=== PATIENT | female | born 1940 | race Caucasian/White ===

== ENCOUNTER → 2016-07-14 | Outpatient (CLI) | payer MEDICARE, BC ==
[~2016-07-14] MED LIST: ALPHA LIPOIC A PO; ALPHA LIPOIC ACID PO; BENICAR20 MG PO; CIPRO 500MG TA500 MG PO; CO Q-1030 MG PO; CO Q1030 MG PO; METRONIDAZOLE500 MG PO; MULTIPLE VITAMI1 CAP PO; NORCO 325 MG-51 TAB PO; OMEGA 31000 MG PO; VITAMIN B COMPL1 TA1 PO; VITAMIN C BUFF500 MG PO; VITAMIN D31000 IU PO
== END ==
LOC: MC.RAD 10:00
DX: Z12.31 Encounter for screening mammogram for malignant neoplasm of breast (principal); N64.89 Other specified disorders of breast

== ENCOUNTER → 2016-07-15 | Outpatient (CLI) | payer MEDICARE, BC ==
[~2016-07-15] VITALS: Ht 163.8 cm; Wt 104.1 kg
== END ==
LOC: LIGHT 07-08 10:59
DX: E88.81 Metabolic syndrome and other insulin resistance (principal); E11.9 Type 2 diabetes mellitus without complications; E66.09 Other obesity due to excess calories; Z68.39 Body mass index [BMI] 39.0-39.9, adult; E78.4 Other hyperlipidemia

== ENCOUNTER → 2016-09-07 | Outpatient (CLI) | payer MEDICARE, BC | LOC: BHSO 13:10 | DX: F33.0 Major depressive disorder, recurrent, mild (principal) ==

== ENCOUNTER → 2016-09-09 | Outpatient (CLI) | payer MEDICARE, BC ==
[~2016-09-09] VITALS: Ht 163.8 cm; Wt 103.4 kg
== END ==
LOC: LIGHT 10:35
DX: E88.81 Metabolic syndrome and other insulin resistance (principal); E11.9 Type 2 diabetes mellitus without complications; E66.8 Other obesity; Z68.39 Body mass index [BMI] 39.0-39.9, adult; E78.4 Other hyperlipidemia; Z90.710 Acquired absence of both cervix and uterus

== ENCOUNTER → 2016-10-12 | Outpatient (CLI) | payer MEDICARE, BC | LOC: BHSO 13:05 | DX: F33.1 Major depressive disorder, recurrent, moderate (principal) ==

== ENCOUNTER → 2016-10-21 | Outpatient (CLI) | payer MEDICARE, BC ==
[~2016-10-21] VITALS: Ht 163.8 cm; Wt 102.3 kg
[2016-10-21 11:13] VITALS: BP 136/68; PULSE 72
== END ==
LOC: LIGHT 11:05
DX: E88.81 Metabolic syndrome and other insulin resistance (principal); E11.9 Type 2 diabetes mellitus without complications; E66.9 Obesity, unspecified; Z68.38 Body mass index [BMI] 38.0-38.9, adult; Z71.3 Dietary counseling and surveillance; E78.5 Hyperlipidemia, unspecified

== ENCOUNTER → 2016-11-19 | Outpatient (CLI) | payer MEDICARE, BC | LOC: BHSO 13:58 | DX: F33.1 Major depressive disorder, recurrent, moderate (principal) ==

== ENCOUNTER 2016-12-08 10:10 | Outpatient (RCR) | payer MEDICARE, BC | END 2016-12-09 08:41 | LOC: MKS.ESL.PT 10:10 | DX: M76.31 Iliotibial band syndrome, right leg (principal); M79.651 Pain in right thigh ==

== ENCOUNTER 2016-12-08 10:15 | Outpatient (RCR) | payer MEDICARE, BC | END 2016-12-09 08:41 | disposition still patient (30) | LOC: MKS.ESL.PT 10:15 | DX: M25.551 Pain in right hip (principal); M54.5 Low back pain; M79.651 Pain in right thigh; M79.641 Pain in right hand | CPT/HCPCS: G8978-GP; G8979-GP; G8980-GP ==

== ENCOUNTER → 2016-12-16 | Outpatient (CLI) | payer MEDICARE, BC ==
[~2016-12-16] VITALS: Ht 163.8 cm; Wt 99.3 kg
[2016-12-16 11:28] VITALS: BP 134/70; PULSE 68
== END ==
LOC: LIGHT 10:25
DX: E88.81 Metabolic syndrome and other insulin resistance (principal); E11.9 Type 2 diabetes mellitus without complications; E66.9 Obesity, unspecified; Z68.37 Body mass index [BMI] 37.0-37.9, adult; Z71.3 Dietary counseling and surveillance; E78.5 Hyperlipidemia, unspecified

== ENCOUNTER → 2016-12-21 | Outpatient (CLI) | payer MEDICARE, BC | LOC: BHSO 09:02 | DX: F33.2 Major depressive disorder, recurrent severe without psychotic features (principal) ==

== ENCOUNTER → 2017-01-25 | Outpatient (CLI) | payer MEDICARE | LOC: BHSO 09:03 | DX: F33.2 Major depressive disorder, recurrent severe without psychotic features (principal) ==

== ENCOUNTER → 2017-02-17 | Outpatient (CLI) | payer MEDICARE ==
[~2017-02-17] VITALS: Ht 163.8 cm; Wt 99.6 kg
[2017-02-17 10:18] VITALS: BP 136/80; PULSE 60
== END ==
LOC: LIGHT 10:03
DX: E88.81 Metabolic syndrome and other insulin resistance (principal); E11.9 Type 2 diabetes mellitus without complications; E66.9 Obesity, unspecified; Z68.37 Body mass index [BMI] 37.0-37.9, adult; Z71.3 Dietary counseling and surveillance; E78.5 Hyperlipidemia, unspecified

== ENCOUNTER → 2017-03-02 | Outpatient (CLI) | payer MEDICARE | LOC: BHSO 10:06 | DX: F41.1 Generalized anxiety disorder (principal) ==

== ENCOUNTER → 2017-04-07 | Outpatient (CLI) | payer MEDICARE, BC ==
[~2017-04-07] VITALS: Ht 163.8 cm; Wt 98.7 kg
[2017-04-07 13:52] VITALS: BP 122/80; PULSE 60
== END ==
LOC: LIGHT 09:57
DX: E88.81 Metabolic syndrome and other insulin resistance (principal); E11.9 Type 2 diabetes mellitus without complications; E66.9 Obesity, unspecified; Z68.37 Body mass index [BMI] 37.0-37.9, adult; Z71.3 Dietary counseling and surveillance; E78.5 Hyperlipidemia, unspecified

== ENCOUNTER → 2017-05-05 | Outpatient (CLI) | payer MEDICARE | LOC: BHSO 09:12 | DX: F33.1 Major depressive disorder, recurrent, moderate (principal) ==

== ENCOUNTER → 2017-06-02 | Outpatient (CLI) | payer MEDICARE, BC ==
[~2017-06-02] VITALS: Ht 163.8 cm; Wt 97.5 kg
[2017-06-02 13:17] VITALS: BP 140/74; PULSE 64
== END ==
LOC: LIGHT 12:29
DX: E88.81 Metabolic syndrome and other insulin resistance (principal); E11.9 Type 2 diabetes mellitus without complications; E66.9 Obesity, unspecified; Z68.36 Body mass index [BMI] 36.0-36.9, adult; Z71.3 Dietary counseling and surveillance; E78.5 Hyperlipidemia, unspecified
CPT/HCPCS: G0463

== ENCOUNTER → 2017-06-07 | Outpatient (CLI) | payer MEDICARE, BC | LOC: BHSO 15:05 | DX: F33.1 Major depressive disorder, recurrent, moderate (principal) ==

== ENCOUNTER → 2017-07-21 | Outpatient (CLI) | payer MEDICARE, BC ==
[~2017-07-21] VITALS: Ht 163.8 cm; Wt 96.8 kg
[2017-07-21 13:16] VITALS: BP 132/64; PULSE 64
== END ==
LOC: LIGHT 03-24 11:01
DX: E88.81 Metabolic syndrome and other insulin resistance (principal); E11.9 Type 2 diabetes mellitus without complications; E66.9 Obesity, unspecified; Z68.36 Body mass index [BMI] 36.0-36.9, adult; Z71.3 Dietary counseling and surveillance; E78.5 Hyperlipidemia, unspecified
CPT/HCPCS: G0463

== ENCOUNTER 2017-08-08 11:30 | Outpatient (RCR) | payer MEDICARE, BC | END 2017-08-09 | disposition home or self-care (01) | LOC: MKS.ESL.PT | DX: M16.11 Unilateral primary osteoarthritis, right hip (principal); M48.00 Spinal stenosis, site unspecified; M62.838 Other muscle spasm | CPT/HCPCS: G8978-GP; G8979-GP ==

== ENCOUNTER → 2017-08-12 | Outpatient (CLI) | payer MEDICARE, BC | LOC: MC.RAD 11:40 | DX: Z12.31 Encounter for screening mammogram for malignant neoplasm of breast (principal) ==

== ENCOUNTER → 2017-08-25 | Outpatient (CLI) | payer MEDICARE, BC | LOC: BHSO 14:02 | DX: F33.1 Major depressive disorder, recurrent, moderate (principal) ==

== ENCOUNTER → 2017-09-08 | Outpatient (CLI) | payer MEDICARE, BC ==
[~2017-09-08] VITALS: Ht 163.8 cm; Wt 97.3 kg
[2017-09-08 11:18] VITALS: BP 120/60; PULSE 60
== END ==
LOC: LIGHT 09:20
DX: E88.81 Metabolic syndrome and other insulin resistance (principal); E11.9 Type 2 diabetes mellitus without complications; E66.9 Obesity, unspecified; Z68.36 Body mass index [BMI] 36.0-36.9, adult; Z71.3 Dietary counseling and surveillance; E78.5 Hyperlipidemia, unspecified
CPT/HCPCS: G0463

== ENCOUNTER → 2017-09-14 | Outpatient (CLI) | payer SELFPAY | LOC: BHSO 12:57 | DX: F33.1 Major depressive disorder, recurrent, moderate (principal) ==

== ENCOUNTER 2017-09-22 13:15 | Outpatient (RCR) | payer MEDICARE, BC | END 2017-09-23 13:10 | disposition home or self-care (01) | LOC: MKS.ESL.PT 13:15 | DX: M16.11 Unilateral primary osteoarthritis, right hip (principal); M48.061 Spinal stenosis, lumbar region without neurogenic claudication; M62.838 Other muscle spasm | CPT/HCPCS: G8978-GP; G8979-GP ==

== ENCOUNTER → 2017-10-19 | Outpatient (CLI) | payer SELFPAY | LOC: BHSO 13:13 | DX: F33.1 Major depressive disorder, recurrent, moderate (principal) ==

== ENCOUNTER → 2017-11-03 | Outpatient (CLI) | payer MEDICARE, BC ==
[~2017-11-03] VITALS: Ht 163.8 cm; Wt 95.7 kg
[2017-11-03 11:15] VITALS: BP 130/65; PULSE 92
== END ==
LOC: LIGHT 11:03
DX: E88.81 Metabolic syndrome and other insulin resistance (principal); E11.9 Type 2 diabetes mellitus without complications; E66.9 Obesity, unspecified; Z68.35 Body mass index [BMI] 35.0-35.9, adult; Z71.3 Dietary counseling and surveillance; E78.5 Hyperlipidemia, unspecified
CPT/HCPCS: G0463

== ENCOUNTER → 2017-11-23 | Outpatient (CLI) | payer SELFPAY | LOC: BHSO 13:06 | DX: F33.0 Major depressive disorder, recurrent, mild (principal) ==

== ENCOUNTER → 2017-12-08 | Outpatient (CLI) | payer MEDICARE, BC ==
[~2017-12-08] VITALS: Ht 163.8 cm; Wt 93.0 kg
== END ==
LOC: LIGHT 11:43
DX: E88.81 Metabolic syndrome and other insulin resistance (principal); E11.9 Type 2 diabetes mellitus without complications; E66.9 Obesity, unspecified; Z68.35 Body mass index [BMI] 35.0-35.9, adult; Z71.3 Dietary counseling and surveillance; E78.5 Hyperlipidemia, unspecified
CPT/HCPCS: G0463

== ENCOUNTER → 2017-12-16 | Outpatient (CLI) | payer SELFPAY | LOC: BHSO 09:58 | DX: F41.1 Generalized anxiety disorder (principal) ==

== ENCOUNTER → 2018-01-12 | Outpatient (CLI) | payer MEDICARE, BC ==
[~2018-01-12] VITALS: Ht 163.8 cm; Wt 93.7 kg
[2018-01-12 13:42] VITALS: BP 142/66; PULSE 76
== END ==
LOC: LIGHT 12:51
DX: E11.9 Type 2 diabetes mellitus without complications (principal); E78.5 Hyperlipidemia, unspecified; E66.9 Obesity, unspecified; Z68.34 Body mass index [BMI] 34.0-34.9, adult; Z71.3 Dietary counseling and surveillance
CPT/HCPCS: G0463

== ENCOUNTER → 2018-01-20 | Outpatient (CLI) | payer SELFPAY | LOC: BHSO 10:10 | DX: F33.1 Major depressive disorder, recurrent, moderate (principal) ==

== ENCOUNTER → 2018-01-31 | Outpatient (CLI) | payer SELFPAY | LOC: BHSO 11:05 | DX: F33.1 Major depressive disorder, recurrent, moderate (principal) ==

== ENCOUNTER → 2018-03-09 | Outpatient (CLI) | payer MEDICARE, BC ==
[~2018-03-09] VITALS: Ht 163.8 cm; Wt 92.3 kg
[2018-03-09 10:52] VITALS: BP 142/74; PULSE 60
== END ==
LOC: LIGHT 02-23 14:36
DX: E88.81 Metabolic syndrome and other insulin resistance (principal); E11.9 Type 2 diabetes mellitus without complications; E78.5 Hyperlipidemia, unspecified; E66.9 Obesity, unspecified; Z68.34 Body mass index [BMI] 34.0-34.9, adult; Z71.3 Dietary counseling and surveillance
CPT/HCPCS: G0463

== ENCOUNTER → 2018-03-23 | Outpatient (CLI) | payer SELFPAY | LOC: BHSO 11:04 | DX: F33.2 Major depressive disorder, recurrent severe without psychotic features (principal) ==

== ENCOUNTER → 2018-04-20 | Outpatient (CLI) | payer SELFPAY | LOC: BHSO 11:01 | DX: F33.1 Major depressive disorder, recurrent, moderate (principal) ==

== ENCOUNTER → 2018-05-25 | Outpatient (CLI) | payer SELFPAY | LOC: BHSO 10:03 | DX: F33.1 Major depressive disorder, recurrent, moderate (principal) ==

== ENCOUNTER → 2018-05-25 | Outpatient (CLI) | payer MEDICARE, BC ==
[~2018-05-25] VITALS: Ht 163.8 cm; Wt 92.8 kg
[2018-05-25 11:24] VITALS: BP 150/62; PULSE 56
== END ==
LOC: LIGHT 04-13 11:01
DX: E88.81 Metabolic syndrome and other insulin resistance (principal); E11.9 Type 2 diabetes mellitus without complications; E78.5 Hyperlipidemia, unspecified; E66.9 Obesity, unspecified; Z68.35 Body mass index [BMI] 35.0-35.9, adult; Z71.3 Dietary counseling and surveillance
CPT/HCPCS: G0463

== ENCOUNTER → 2018-07-18 | Outpatient (CLI) | payer SELFPAY | LOC: BHSO 11:03 | DX: F41.1 Generalized anxiety disorder (principal) ==

== ENCOUNTER → 2018-08-24 | Outpatient (CLI) | payer MEDICARE, BC ==
[~2018-08-24] VITALS: Ht 163.8 cm; Wt 90.7 kg
[~2018-08-24] MED LIST changes: +CAROTOMAX PO
[2018-08-24 13:36] VITALS: BP 140/80; PULSE 60
== END ==
LOC: LIGHT 07-27 11:34
DX: E88.81 Metabolic syndrome and other insulin resistance (principal); E11.9 Type 2 diabetes mellitus without complications; E78.5 Hyperlipidemia, unspecified; E66.9 Obesity, unspecified; Z68.33 Body mass index [BMI] 33.0-33.9, adult; Z71.3 Dietary counseling and surveillance
CPT/HCPCS: G0463

== ENCOUNTER → 2018-09-20 | Outpatient (CLI) | payer MEDICARE, BC | LOC: BHSO 11:04 | DX: F33.1 Major depressive disorder, recurrent, moderate (principal) ==

== ENCOUNTER → 2018-09-29 | Outpatient (CLI) | payer MEDICARE, BC | LOC: BHSO 13:11 | DX: F33.1 Major depressive disorder, recurrent, moderate (principal) ==

== ENCOUNTER → 2018-10-19 | Outpatient (CLI) | payer MEDICARE, BC | LOC: MC.RAD 09-18 11:45 | DX: Z12.31 Encounter for screening mammogram for malignant neoplasm of breast (principal) ==

== ENCOUNTER → 2018-11-02 | Outpatient (CLI) | payer MEDICARE, BC ==
[~2018-11-02] VITALS: Ht 163.8 cm; Wt 90.9 kg
[2018-11-02 11:24] VITALS: BP 148/80; PULSE 60
== END ==
LOC: LIGHT 09-28 13:17
DX: E66.01 Morbid (severe) obesity due to excess calories (principal); Z68.41 Body mass index [BMI] 40.0-44.9, adult; Z71.3 Dietary counseling and surveillance
CPT/HCPCS: G0463

== ENCOUNTER → 2018-11-02 | Outpatient (CLI) | payer SELFPAY | LOC: BHSO 13:03 | DX: F33.1 Major depressive disorder, recurrent, moderate (principal) ==

== ENCOUNTER → 2018-11-15 | Outpatient (CLI) | payer SELFPAY | LOC: BHSO 11:00 | DX: F33.1 Major depressive disorder, recurrent, moderate (principal) ==

== ENCOUNTER → 2018-12-01 | Outpatient (CLI) | payer MEDICARE, BC | LOC: BHSO 11:02 | DX: F33.1 Major depressive disorder, recurrent, moderate (principal) ==

== ENCOUNTER → 2019-01-18 | Outpatient (CLI) | payer SELFPAY | LOC: BHSO 14:58 | DX: F33.1 Major depressive disorder, recurrent, moderate (principal) ==

== ENCOUNTER → 2019-03-01 | Outpatient (CLI) | payer SELFPAY | LOC: BHSO 10:58 | DX: F33.1 Major depressive disorder, recurrent, moderate (principal) ==

== ENCOUNTER → 2019-03-01 | Outpatient (CLI) | payer MEDICARE, BC ==
[~2019-03-01] VITALS: Ht 163.8 cm; Wt 93.0 kg
[2019-03-01 13:34] VITALS: BP 136/66; PULSE 60
== END ==
LOC: LIGHT 11:30
DX: E88.81 Metabolic syndrome and other insulin resistance (principal); E11.65 Type 2 diabetes mellitus with hyperglycemia; E78.5 Hyperlipidemia, unspecified; E66.9 Obesity, unspecified; Z68.34 Body mass index [BMI] 34.0-34.9, adult; Z71.3 Dietary counseling and surveillance
CPT/HCPCS: G0463

== ENCOUNTER → 2019-03-23 | Outpatient (CLI) | payer SELFPAY | LOC: BHSO 11:07 | DX: F33.1 Major depressive disorder, recurrent, moderate (principal) ==

== ENCOUNTER → 2019-04-19 | Outpatient (CLI) | payer SELFPAY | LOC: BHSO 14:00 | DX: F41.1 Generalized anxiety disorder (principal) ==

== ENCOUNTER → 2019-06-21 | Outpatient (CLI) | payer SELFPAY | LOC: BHSO 13:01 | DX: F33.0 Major depressive disorder, recurrent, mild (principal) ==

== ENCOUNTER → 2019-08-02 | Outpatient (CLI) | payer SELFPAY ==
[~2019-08-02] MED LIST changes: -CO Q1030 MG PO; +COENZYME Q-10100 M1 PO; +VITAMIN D 1001000 IU PO; -VITAMIN D31000 IU PO
== END ==
LOC: BHSO 13:03
DX: F33.1 Major depressive disorder, recurrent, moderate (principal)

== ENCOUNTER → 2019-08-02 | Outpatient (CLI) | payer MEDICARE, BC ==
[~2019-08-02] VITALS: Ht 163.8 cm; Wt 96.4 kg
[2019-08-02 14:21] VITALS: BP 134/72; PULSE 64
== END ==
LOC: LIGHT 04-12 15:46
DX: Z68.35 Body mass index [BMI] 35.0-35.9, adult (principal); E88.81 Metabolic syndrome and other insulin resistance; E11.9 Type 2 diabetes mellitus without complications; E78.5 Hyperlipidemia, unspecified
CPT/HCPCS: G0463

== ENCOUNTER → 2019-10-26 | Outpatient (CLI) | payer SELFPAY | LOC: BHSO 11:00 | DX: F33.0 Major depressive disorder, recurrent, mild (principal) ==

== ENCOUNTER → 2019-11-20 | Outpatient (CLI) | payer MEDICARE, BC | LOC: MC.RAD 09:00 | DX: Z12.31 Encounter for screening mammogram for malignant neoplasm of breast (principal) ==

== ENCOUNTER → 2019-11-21 | Outpatient (CLI) | payer SELFPAY | LOC: BHSO 10:57 | DX: F33.1 Major depressive disorder, recurrent, moderate (principal) ==

== ENCOUNTER → 2019-12-13 | Outpatient (CLI) | payer SELFPAY | LOC: BHSO 11:04 | DX: F33.1 Major depressive disorder, recurrent, moderate (principal) ==

== ENCOUNTER → 2019-12-20 | Outpatient (CLI) | payer MEDICARE, BC ==
[~2019-12-20] VITALS: Ht 163.8 cm; Wt 93.9 kg
[2019-12-20 10:37] VITALS: BP 144/66; PULSE 60
== END ==
LOC: LIGHT 12-06 13:55
DX: E66.8 Other obesity (principal); Z68.31 Body mass index [BMI] 31.0-31.9, adult; E03.9 Hypothyroidism, unspecified
CPT/HCPCS: G0463

== ENCOUNTER → 2019-12-28 | Outpatient (CLI) | payer SELFPAY | LOC: BHSO 11:00 | DX: F33.0 Major depressive disorder, recurrent, mild (principal) ==

== ENCOUNTER → 2020-01-24 | Outpatient (CLI) | payer MEDICARE, BC ==
[~2020-01-24] VITALS: Ht 163.8 cm; Wt 94.1 kg
[2020-01-24 09:37] VITALS: BP 144/62; PULSE 68
== END ==
LOC: LIGHT 09:26
DX: E66.8 Other obesity (principal); Z68.35 Body mass index [BMI] 35.0-35.9, adult; E88.81 Metabolic syndrome and other insulin resistance; E11.9 Type 2 diabetes mellitus without complications; E78.5 Hyperlipidemia, unspecified
CPT/HCPCS: G0463

== ENCOUNTER → 2020-03-20 | Outpatient (CLI) | payer SELFPAY | LOC: BHSO 13:02 | DX: F33.1 Major depressive disorder, recurrent, moderate (principal) ==

== ENCOUNTER → 2020-03-20 | Outpatient (CLI) | payer MEDICARE, BC ==
[~2020-03-20] VITALS: Ht 163.8 cm; Wt 93.2 kg
[2020-03-20 10:38] VITALS: BP 150/64; PULSE 64
== END ==
LOC: LIGHT 10:33
DX: E66.8 Other obesity (principal); Z68.34 Body mass index [BMI] 34.0-34.9, adult; E88.81 Metabolic syndrome and other insulin resistance; E11.9 Type 2 diabetes mellitus without complications; E78.5 Hyperlipidemia, unspecified
CPT/HCPCS: G0463

== ENCOUNTER → 2020-11-21 | Outpatient (CLI) | payer MEDICARE, BC | LOC: MC.RAD 10:45 | DX: Z12.31 Encounter for screening mammogram for malignant neoplasm of breast (principal) ==

== ENCOUNTER → 2021-11-23 | Outpatient (CLI) | payer MEDICARE, BC | LOC: MC.RAD 14:45 | DX: Z12.31 Encounter for screening mammogram for malignant neoplasm of breast (principal) ==

== ENCOUNTER → 2023-08-02 | Outpatient (CLI) | payer MEDICARE, BC ==
[~2023-08-02] MED LIST changes: +CEPHALEXIN500 M1 PO; +Iohexol 300 - 100 ML VIAL IV ONE; +NS 100 ML IV SCH
== END ==
LOC: COL.RAD 08:23
DX: R91.8 Other nonspecific abnormal finding of lung field (principal); R59.0 Localized enlarged lymph nodes
CPT/HCPCS: Q9967

== ENCOUNTER 2023-09-15 08:50 | Day surgery (SDC) | payer MEDICARE, BC ==
[2023-09-15] VITALS (11 sets, daily range): BP systolic 130–168; BP diastolic 49–90; PULSE 48–64; TEMP 97.1–98.1
[~2023-09-15] VITALS: Ht 162.6 cm; Wt 82.4 kg
[~2023-09-15 08:50] MED LIST changes: -Iohexol 300 - 100 ML VIAL IV ONE; -NS 100 ML IV SCH; -VITAMIN D 1001000 IU PO; +VITAMIN D31000 IU PO
[2023-09-15] MEDS ORDERED: ceFAZolin 2 G in Water For Injection,Sterile 20 ML IV SCH (09:15)
[2023-09-15] MEDS ORDERED: 1/2 NS 1,000 ML IV SCH (09:15)
[2023-09-15 09:52] LABS: BASO % 0.5 % (0.0-2.0); GRAN # 4.4 K/mm3 (1.4-6.5); GRAN % 71.2 % (42.2-75.2); HEMATOCRIT 33.3 % (37.0-47.0); HEMOGLOBIN 11.1 g/dl (12.5-16.0); LYMPH # 1.2 K/mm3 (1.2-3.4); LYMPH % 19.1 % (20.0-51.0); MEAN CELL VOLUME 90 fl (80.0-100.0); MEAN CORPUSCULAR HEMOGLOBIN 30 pg (27-31); MEAN CORPUSCULAR HGB CONC 33 g/dl (33.0-37.0); MEAN PLATELET VOLUME 9.3 fl (7.4-10.4); MONO # 0.6 K/mm3 (0.1-0.6); MONO % 8.9 % (1.7-9.3); PLATELET COUNT 294 K/mm3 (130-400); RED BLOOD COUNT 3.72 M/mm3 (4.10-5.30); REDCELL DISTRIBUTION WIDTH-CV 14.3 % (11.5-14.5)
[2023-09-15] MEDS ORDERED: COZAAR 50MG50 MG/TAB PO (09:58)
[2023-09-15] MEDS ORDERED: LYCOPENE10 M2 PO (10:00)
[2023-09-15] MEDS ORDERED: GLUCOSAMIN 500 PO (10:01)
[2023-09-15] MEDS ORDERED: [UNRECOGNIZED DRUG - OTHER] PO (10:02)
[2023-09-15] MEDS ORDERED: VITAMIN A10k PO (10:02)
[2023-09-15 10:03] LABS: CALCIUM 9.3 mg/dL (8.4-10.2); CREATININE, serum 0.75 mg/dL (0.57-1.11); POTASSIUM 3.7 mEq/L (3.5-4.5)
[2023-09-15] MEDS ORDERED: MAG-OX 400400 MG/TAB PO (10:03)
[2023-09-15 10:28] LABS: INR 1.1 (0.8-3.0); PROTHROMBIN TIME 12.2 SECONDS (9.7-12.8)
--- NOTE | 2023-09-15 10:50 | NUR ---
Pt to procedure,report to YVON Villalobos.
[2023-09-15] MEDS ORDERED: methylPREDNISolone Sod Succ 125 MG/2 ML VIAL IV SCH (11:15)
[2023-09-15] MEDS ORDERED: diphenhydrAMINE 50 MG/ML 1 ML VIAL IV SCH (11:17)
[2023-09-15] MEDS ORDERED: NS 1,000 ML IV.SOLN. IR SCH (12:00)
[2023-09-15] MEDS ORDERED: Topical Skin Adhesive 1 EACH (1 ML) TOP ONE (12:05)
[2023-09-15] MEDS ORDERED: fentaNYL 50 MCG/ML 2 ML VIAL IV SCH (12:27)
[2023-09-15] MEDS ORDERED: Midazolam 2 MG/2 ML VIAL IV SCH (12:27)
--- NOTE | 2023-09-15 12:42 | NUR ---
Bedside report completed with Tigist Eason Rn. First set of vitals reviewed, fluids reviewed, call light within reach, incision reviewed. Tigist Eason RN denies questions/concerns at this time.
[2023-09-15] MEDS ORDERED: Bisacodyl 5 MG TAB PO PRN (13:15)
[2023-09-15] MEDS ORDERED: Magnes Hydrox (MOM) 80 MG/ML 30 ML CUP PO PRN (13:30)
[2023-09-15] MEDS ORDERED: Ondansetron 4 MG/2 ML VIAL IV PRN (13:30)
[2023-09-15] MEDS ORDERED: Acetaminophen 500 MG TAB PO PRN (13:30)
--- NOTE | 2023-09-15 14:00 | NUR ---
Patient brought up to unit around 1240, alert and oriented x4. Noted to be sleeping, but will wake up when asked a question. Can follow verbal commands. Tolerating PO fluids well. Incision to left side of chest CDI with gauze in place. Ice pack provided, left arm in sling. Daughter at bedside. Call light within reach. VSS and being monitored per orders. All needs met at this time.
[2023-09-15] MEDS ORDERED: ceFAZolin 1 G in Water For Injection,Sterile 10 ML IV SCH (18:00)
--- NOTE | 2023-09-15 18:52 | NUR ---
Patient remains stable on room air. BP has decreased over the last few hours to 130s/60s. Tolerating food and fluids well. Drowsiness has subsided, patient did require reminder of pacemaker insertion once, but has remained oriented since. Denies increase in pain. Ice pack just removed, patient requested a break from ice for a while. Patient has voided twice in bedpan when still drowsy, and has been up and ambulating to bathroom since. Gait slightly unsteady, fall precautions in place. Patient verbalized understanding to call and ask for help when getting out of bed. Call light within reach, all needs met at this time.
[2023-09-15] MEDS ORDERED: Melatonin 3 MG TAB PO PRN (21:00)
[2023-09-16 00:05] VITALS: BP_SYST 130
[2023-09-16 03:10] VITALS: BP 118/52; PULSE 60; TEMP 97.4
--- NOTE | 2023-09-16 05:10 | NUR ---
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 PT DENIED GENERAL PAIN, CHEST PAIN, PALPITATIONS, SOB, N,V,D OR DIZZINESS. SURIGAL SITE SHOWED NO SIGNS OF BLEEDING OR HEMATOMA. PT EXPRESSED NO ADDITIONAL NEEDS AT THIS TIME. CALL LIGHT WITHIN REACH.
[2023-09-16 06:39] LABS: BASO % 0.1 % (0.0-2.0); GRAN # 6.3 K/mm3 (1.4-6.5); GRAN % 81.4 % (42.2-75.2); HEMOGLOBIN 11.3 g/dl (12.5-16.0); LYMPH # 0.9 K/mm3 (1.2-3.4); MEAN CELL VOLUME 89 fl (80.0-100.0); MEAN CORPUSCULAR HEMOGLOBIN 29 pg (27-31); MEAN CORPUSCULAR HGB CONC 33 g/dl (33.0-37.0); MEAN PLATELET VOLUME 9.4 fl (7.4-10.4); MONO # 0.6 K/mm3 (0.1-0.6); MONO % 7.1 % (1.7-9.3); PLATELET COUNT 294 K/mm3 (130-400); RED BLOOD COUNT 3.86 M/mm3 (4.10-5.30); REDCELL DISTRIBUTION WIDTH-CV 14.2 % (11.5-14.5)
[2023-09-16 06:40] LABS: HEMATOCRIT 34.5 % (37.0-47.0)
[2023-09-16 06:51] LABS: ALBUMIN 3.2 g/dL (3.4-4.8); BILIRUBIN,TOTAL 0.7 mg/dL (0.2-1.2); CALCIUM 9.4 mg/dL (8.4-10.2); CREATININE, serum 0.85 mg/dL (0.57-1.11); POTASSIUM 3.7 mEq/L (3.5-4.5); TOTAL PROTEIN 6.6 g/dl (6.2-8.1)
[2023-09-16 07:33] VITALS: BP 137/55; PULSE 60; TEMP 98.1
[2023-09-16] MEDS ORDERED: Magnesium Oxide 400 MG TAB PO SCH (09:00)
[2023-09-16] MEDS ORDERED: Losartan 50 MG TAB PO SCH (09:00)
[2023-09-16] MEDS ORDERED: Multivitamin TAB PO SCH (09:00)
[2023-09-16] MEDS ORDERED: Cholecalciferol (Vit D3) 1000 Units TAB PO SCH (09:00)
[2023-09-16] MEDS ORDERED: Cephalexin 500 MG CAP PO SCH (09:00)
--- NOTE | 2023-09-16 09:30 | NUR ---
PATIENT SITTING UP IN BED UPON ENTERING ROOM. MORNING MEDICATIONS ADMINISTERED. SHIFT ASSESSMENT COMPLETED. PATIENT REPORTS SOME DISCOMFORT TO PACEMAKER INSERTION SITE. GAUZE AND TAPE DRESSING IS INTACT WITH NO DRAINAGE, BRUISING, OR SWELLING. FALL PRECAUTIONS IN PLACE. BED ALARM IS ON. CALL LIGHT WITHIN REACH. WILL CONTINUE TO MONITOR.
--- NOTE | 2023-09-16 10:07 | NUR ---
Initial visit; Patient very sweet and interesting. Senior Quality Assurance Engineer and Gita had a wonderful visit about he life and caregiving her who was stricken by Karin Garza's Disease. He was a college football player. Patient spoke of her health issues and how she is recovering from numerous issues. Her priyanka is strong and she has a family who are involved in her life as well. left her card so that Gita may contact her if she chooses.
[2023-09-16 11:13] VITALS: BP 117/38; PULSE 60; TEMP 98.2
[2023-09-16] MEDS ORDERED: CEPHALEXIN500 M1 PO (11:39)
--- NOTE | 2023-09-16 11:57 | NUR ---
Social work student met with patient to discuss discharge planning. Patient lives at [facility] and sees for primary care. Patient obtains her medications from [facility] with no difficulties affording them. Patient's best point of contact is her daughter Oly (Ph#:[phone]) who patient stated is also her DPOA-HC. Patient uses a cane and walker and is independent with ADLS. 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 Patient transports herself to and from appointments and has no concerns with returning to independent living at time of discharge. Patient stated that Physical therapist Ran Saucedo sees her weekly. Discharge plan: Return to [facility] independent living
--- NOTE | 2023-09-16 16:19 | NUR ---
DISCHARGE INSTRUCTIONS REVIEWED, ALL QUESTIONS ANSWERED. IV DISCONTINUED, TELEMETRY REMOVED. PATIENT ESCORTED OFF OF UNIT BY [facility], [facility].
== END 2023-09-16 16:20 | disposition home or self-care (01) ==
LOC: COL.CAR 08:50 → MEDICAL 12:51 → COL.CAR 09-16 16:20
PROVIDERS: Internal Medicine Cardiovascular Disease
DX: R00.1 Bradycardia, unspecified (principal); Z87.891 Personal history of nicotine dependence
CPT/HCPCS: OP; C1769; C1785; C1894; C1898; J0665-JZ; J0690; J1200; J2250; J2919; J3010; J7030

== ENCOUNTER → 2023-12-20 | Outpatient (CLI) | payer MEDICARE, BC ==
[~2023-12-20] MED LIST changes: +COZAAR 50MG50 MG/TAB PO; +GLUCOSAMIN 500 PO; +LYCOPENE10 M2 PO; +MAG-OX 400400 MG/TAB PO; +VITAMIN A10k PO; +[UNRECOGNIZED DRUG - OTHER] PO
== END ==
LOC: MC.RAD 11:26
DX: Z12.31 Encounter for screening mammogram for malignant neoplasm of breast (principal); N64.89 Other specified disorders of breast